=== PATIENT | female | born 1965 | race Two or more races ===

== ENCOUNTER 2020-06-04 08:00 | Inpatient (IN) | payer OTHER ==
[~2020-06-04] VITALS: Ht 154.9 cm; Wt 54.4 kg
[2020-06-04] MEDS ORDERED: CYMBALTA30 MG PO (10:48)
[2020-06-04] MEDS ORDERED: GABAPENTIN800 M1 PO (10:48)
[2020-06-04] MEDS ORDERED: LORAZEPAM1 MG PO (10:48)
[2020-06-04] MEDS ORDERED: ESTAZOLAM1 MG PO (10:49)
[2020-06-11] MEDS ORDERED: PERCOCET 5-3251 EACH PO (14:22)
[2020-06-11] MEDS ORDERED: COLACE100 MG PO (14:22)
== END 2020-06-12 13:47 | disposition home or self-care (01) | DRG 473 ==
LOC: EDSTATUS 08:00 → ADM 08:00 → SURH 06-11 05:00 → O/R 06-11 05:00 → SURH 06-11 08:00
PROVIDERS: ADMIT Orthopaedic Surgery Orthopaedic Surgery of the Spine; ATTEND Orthopaedic Surgery Orthopaedic Surgery of the Spine
PROC: 0RT30ZZ Resection of Cervical Vertebral Disc, Open Approach (ICD-10-PCS; 2020-06-11)
PROC: 07DS3ZZ Extraction of Vertebral Bone Marrow, Percutaneous Approach (ICD-10-PCS; 2020-06-11)
PROC: 4A12X4Z Monitoring of Cardiac Electrical Activity, External Approach (ICD-10-PCS; 2020-06-11)
PROC: 0RG20A0 Fusion of 2 or more Cervical Vertebral Joints with Interbody Fusion Device, Anterior Approach, Anterior Column, Open Approach (ICD-10-PCS; principal; 2020-06-11 10:30)
DX: M47.12 Other spondylosis with myelopathy, cervical region (principal); Z20.828 Contact with and (suspected) exposure to other viral communicable diseases

== ENCOUNTER → 2020-12-11 08:00 | Outpatient (CLI) | payer OTHER ==
[~2020-12-11] VITALS: Ht 154.9 cm; Wt 54.4 kg
[~2020-12-11 08:00] MED LIST: COLACE100 MG PO; CYMBALTA30 MG PO; ESTAZOLAM1 MG PO; GABAPENTIN800 M1 PO; LORAZEPAM1 MG PO; PERCOCET 5-3251 EACH PO
== END | disposition home or self-care (01) ==
LOC: LAB 08:00 → SURH 12-18 10:15 → EDSTATUS 12-18 11:00
PROVIDERS: ATTEND Orthopaedic Surgery Orthopaedic Surgery of the Spine
DX: M51.37 Other intervertebral disc degeneration, lumbosacral region (principal); M54.17 Radiculopathy, lumbosacral region

== ENCOUNTER 2021-05-07 10:00 | Inpatient (IN) | payer OTHER ==
[~2021-05-07] VITALS: Ht 154.9 cm; Wt 56.7 kg
[2021-05-19] MEDS ORDERED: ENDOCET 5-3251 EACH (11:34)
[2021-05-19] MEDS ORDERED: KETOROLAC60 MG/2 M1 (11:35)
[2021-05-19] MEDS ORDERED: TRAM1TAB98 (11:35)
[2021-05-19] MEDS ORDERED: ALENDRONATE SOD70 MG (11:35)
[2021-05-19] MEDS ORDERED: DICLOFENAC SOD100 GM (11:35)
[2021-05-19] MEDS ORDERED: SIMVASTATIN20 MG (11:35)
[2021-05-19] MEDS ORDERED: MAXIMUM D3325 MCG (11:35)
[2021-05-19] MEDS ORDERED: CYCLOBENZAPRINE10 MG (11:36)
[2021-05-19] MEDS ORDERED: CLOTRIMAZOLE-BE15 G1 (11:36)
[2021-05-19] MEDS ORDERED: MEDROLPACK PO (13:20)
[2021-05-19] MEDS ORDERED: NEURONTIN800 MG PO (13:20)
[2021-05-19] MEDS ORDERED: BACTRIM DS TAB1 EACH PO (13:20)
[2021-05-19] MEDS ORDERED: COLACE100 MG PO (13:20)
[2021-05-19] MEDS ORDERED: PERCOCET 5-3251 EACH PO (13:20)
== END 2021-05-21 17:48 | DRG 460 ==
LOC: SURH 05-19 07:10 → O/R 05-19 07:10 → SURH 05-19 10:00
PROVIDERS: ADMIT Orthopaedic Surgery Orthopaedic Surgery of the Spine; ATTEND Orthopaedic Surgery Orthopaedic Surgery of the Spine
PROC: 07DR3ZZ Extraction of Iliac Bone Marrow, Percutaneous Approach (ICD-10-PCS; 2021-05-19)
PROC: 0SG30J1 Fusion of Lumbosacral Joint with Synthetic Substitute, Posterior Approach, Posterior Column, Open Approach (ICD-10-PCS; principal; 2021-05-19 16:45)
DX: M51.37 Other intervertebral disc degeneration, lumbosacral region (principal); M54.17 Radiculopathy, lumbosacral region

== ENCOUNTER 2024-12-07 10:45 | Inpatient (IN) | payer OTHER ==
[~2024-12-07] VITALS: Ht 152.4 cm; Wt 59.4 kg
[~2024-12-07 10:45] MED LIST changes: +ALENDRONATE SOD70 MG; +BACTRIM DS TAB1 EACH PO; +CLOTRIMAZOLE-BE15 G1; +CYCLOBENZAPRINE10 MG; +DICLOFENAC SOD100 GM; +ENDOCET 5-3251 EACH; +KETOROLAC60 MG/2 M1; +MAXIMUM D3325 MCG; +MEDROLPACK PO; +NEURONTIN800 MG PO; +SIMVASTATIN20 MG; +TRAM1TAB98
[2024-12-12] MEDS ORDERED: VANCOMYCIN HCL 1,000 MG VIAL ONE ×3 (12:24→20:46)
[2024-12-12] MEDS ORDERED: ACETAMINOPHEN-1 EAC2 PO (14:27)
[2024-12-12] MEDS ORDERED: BACTRIM DS TAB1 EACH PO (14:28)
[2024-12-12] MEDS ORDERED: MEDROLPACK PO (14:28)
[2024-12-12] MEDS ORDERED: NEURONTIN800 MG PO (14:29)
[2024-12-12] MEDS ORDERED: COLACE100 MG PO (14:29)
[2024-12-12] MEDS ORDERED: GABAPENTIN100 M2 PO (14:29)
[2024-12-12] MEDS ORDERED: METHYLPREDNISOLONE SOD SUCC 125 MG VIAL ONE ×2 (14:55→15:03)
[2024-12-12] MEDS ORDERED: METHYLPREDNISOLONE ACETATE 80 MG/ML VIAL ONE (14:55)
[2024-12-12] MEDS ORDERED: ISOPROPYL ALCOHOL 30 ML OUNCE TOP ONE (14:56)
[2024-12-12] MEDS ORDERED: ENALAPRILAT DIHYDRATE 1.25 MG/ML VIAL IV PRN (15:15)
[2024-12-12] MEDS ORDERED: 0.9 % SODIUM CHLORIDE 1,000 ML IV SCH (15:15)
[2024-12-12] MEDS ORDERED: PROMETHAZINE HCL 50 MG/ML AMPUL IM PRN (15:15)
[2024-12-12] MEDS ORDERED: ACETAMINOPHEN 500 MG GEL..CAP PO SCH (15:16)
[2024-12-12] MEDS ORDERED: CEFAZOLIN SODIUM 1,000 MG in 0.9 % SODIUM CHLORIDE 50 ML IV SCH (17:00)
[2024-12-12] MEDS ORDERED: DOCUSATE SODIUM 100MG CAP PO SCH (17:00)
[2024-12-12] MEDS ORDERED: MORPHINE SULFATE 4 MG,MORPHINE SULFATE 2 MG IV SCH (17:00)
[2024-12-12] MEDS ORDERED: FAMOtidine 20 MG TABLET PO SCH (17:00)
[2024-12-12] MEDS ORDERED: METHYLPREDNISOLONE SOD SUCC 125 MG VIAL IV SCH (17:00)
[2024-12-12] MEDS ORDERED: CEFAZOLIN SODIUM 1,000 MG VIAL ONE (19:35)
[2024-12-12] MEDS ORDERED: MORPHINE SULFATE 4 MG/ML VIAL IV ONE (19:45)
[2024-12-12 20:57] VITALS: BP 144/79; O2SAT 95
[2024-12-12] MEDS ORDERED: GABAPENTIN 800 MG TABLET PO SCH (21:00)
[2024-12-12] MEDS ORDERED: LORazepam 1 MG TABLET PO SCH (21:00)
[2024-12-12] MEDS ORDERED: VANCOMYCIN HCL 1,000 MG VIAL IV SCH (21:00)
[2024-12-13] VITALS: O2SAT 81
[2024-12-13] MEDS ORDERED: SODIUM CHLORIDE 0.45 % 1,000 ML IV SCH
[2024-12-13 01:27] VITALS: BP 139/82; O2SAT 98
[2024-12-13] MEDS ORDERED: OxyCODONE HCL 5 MG TABLET (ROXICODONE) PO PRN (06:01)
[2024-12-13 06:02] VITALS: O2SAT 94
[2024-12-13] MEDS ORDERED: VANCOMYCIN HCL 1,000 MG VIAL ONE ×2 (07:27→16:21)
[2024-12-13 07:53] LABS: BASO % 0.2 % (0.1-1.2); EOS # 0.06 (0.04-0.54); EOS % 0.4 % (0.7-7.0); HEMATOCRIT 37.5 % (34.1-44.9); HEMOGLOBIN 12.1 g/dL (11.2-15.7); LYMPH % 4.3 % (19.3-53.1); MEAN CORPUSCULAR HEMOGLOBIN 25.5 pg (25.6-32.2); MONO # 0.31 (0.24-0.82); MONO % 1.9 % (4.7-12.5); NEUT # 15.21 (1.56-6.13); NEUT % 92.9 % (34.0-71.1); PLATELET COUNT 398 K/uL (163-369); RED BLOOD COUNT 4.74 M/uL (3.93-5.22); RED CELL DISTRIBUTION WIDTH 15.6 % (11.6-14.4)
[2024-12-13 08:19] VITALS: BP 158/79; O2SAT 95
[2024-12-13 08:19] LABS: CALCIUM 8.8 mg/dL (8.5-10.1); CREATININE SERUM 0.57 mg/dL (0.55-1.02); GFR 108.94; POTASSIUM 3.94 mEq/L (3.5-5.1)
[2024-12-13] MEDS ORDERED: Duloxetine HCl 30 MG CAPSULE.DR PO SCH (09:00)
[2024-12-13] MEDS ORDERED: TAMSULOSIN HCL 0.4 MG CAP PO SCH (09:00)
[2024-12-13 16:00] VITALS: BP 156/89; O2SAT 97
[2024-12-13 23:45] VITALS: BP 122/75; O2SAT 96
[2024-12-14 08:00] VITALS: BP 128/76; O2SAT 96
== END 2024-12-14 14:45 | disposition home or self-care (01) | DRG 402 ==
LOC: SURG 12-12 07:40 → O/R 12-12 07:40 → SURH 12-12 10:45 → SURG 12-12 19:05
PROVIDERS: ADMIT Orthopaedic Surgery Orthopaedic Surgery of the Spine; ATTEND Orthopaedic Surgery Orthopaedic Surgery of the Spine
PROC: 0SG0071 Fusion of Lumbar Vertebral Joint with Autologous Tissue Substitute, Posterior Approach, Posterior Column, Open Approach (ICD-10-PCS; 2024-12-12)
PROC: 0ST20ZZ Resection of Lumbar Vertebral Disc, Open Approach (ICD-10-PCS; 2024-12-12)
PROC: 0QB30ZZ Excision of Left Pelvic Bone, Open Approach (ICD-10-PCS; 2024-12-12)
PROC: 07DR0ZZ Extraction of Iliac Bone Marrow, Open Approach (ICD-10-PCS; 2024-12-12)
PROC: 4A1104G Monitoring of Peripheral Nervous Electrical Activity, Intraoperative, Open Approach (ICD-10-PCS; 2024-12-12)
PROC: 4A12X4Z Monitoring of Cardiac Electrical Activity, External Approach (ICD-10-PCS; 2024-12-12)
PROC: XRGB0R7 Fusion of Lumbar Vertebral Joint using Custom-Made Anatomically Designed Interbody Fusion Device, Open Approach, New Technology Group 7 (ICD-10-PCS; principal; 2024-12-12 12:30)
DX: M43.16 Spondylolisthesis, lumbar region (principal); M48.062 Spinal stenosis, lumbar region with neurogenic claudication; I10 Essential (primary) hypertension